=== PATIENT | female | born 1960 | race Caucasian/White ===

== ENCOUNTER 2019-08-30 06:41 | Day surgery (SDC) | payer BC ==
[~2019-08-30] VITALS: Ht 177.8 cm; Wt 107.8 kg
[~2019-08-30 06:41] MED LIST: Diethylpropion75 MG
--- NOTE | 2019-08-30 07:46 | NUR ---
08/30/19 0746 Fidelina Garcia 1 TRY HAND RIGHT NO FLASH 2 TRY RIGHT HAND BLOWN 3 TRY RIGHT WRIST FLASH VALVE IN WAY 4 AC RIGHT ARM NO FLASH
== END 2019-08-30 08:55 | disposition home or self-care (01) ==
LOC: ORSCSDS 06:41
PROVIDERS: Surgery
PROC: 0DJD8ZZ Inspection of Lower Intestinal Tract, Via Natural or Artificial Opening Endoscopic (ICD-10-PCS; principal; 2019-08-30 08:00)
DX: Z12.11 Encounter for screening for malignant neoplasm of colon (principal); Z80.0 Family history of malignant neoplasm of digestive organs; J44.9 Chronic obstructive pulmonary disease, unspecified; F32.9 Major depressive disorder, single episode, unspecified; D64.9 Anemia, unspecified; Z87.891 Personal history of nicotine dependence; Z79.899 Other long term (current) drug therapy
CPT/HCPCS: J2405; J2704; J7120

== ENCOUNTER 2021-05-31 15:10 | Emergency (ER) | payer BC ==
[~2021-05-31] VITALS: Ht 177.8 cm; Wt 122.5 kg
[2021-05-31] MEDS ORDERED: Zofran8 MG PO (17:09)
== END 2021-05-31 17:10 | disposition home or self-care (01) ==
LOC: ER 15:10
DX: U07.1 COVID-19 (principal); Z88.6 Allergy status to analgesic agent; Z88.0 Allergy status to penicillin; Z91.041 Radiographic dye allergy status; Z79.899 Other long term (current) drug therapy; Z87.891 Personal history of nicotine dependence
CPT/HCPCS: 99282